=== PATIENT | male | born 1990 | race Caucasian/White ===

== ENCOUNTER 2017-04-19 19:08 | Emergency (ER) | payer BC ==
[~2017-04-19] VITALS: Ht 170.2 cm; Wt 81.6 kg
[2017-04-19] MEDS ORDERED: SERTRALINE (19:23)
[2017-04-19] MEDS ORDERED: XANAX (19:23)
[2017-04-19] MEDS ORDERED: FAMOTIDINE 20 MG TABLET PO ONE (19:30)
[2017-04-19] MEDS ORDERED: FAMOTIDINE. 20 MG/2 ML VIAL IV ONE ×2 (19:30→19:40)
[2017-04-19] MEDS ORDERED: predniSONE 20 MG TABLET PO ONE (19:30)
[2017-04-19] MEDS ORDERED: FAMOTIDINE 20 MG TABLET ONE (19:36)
[2017-04-19] MEDS ORDERED: predniSONE 20 MG TABLET ONE (19:36)
--- NOTE | 2017-04-19 20:36 | NUR ---
Patient discharged to home in stable conditon. Written and verbal after care instructions given. Patient verbalizes understanding of instructions. PATIENT LEFT WITH STABLE GAIT. PATIENT STATES WILL CALL AN UBER TO TAKE HIM HOME.
[2017-04-19 20:39] VITALS: BP 138/76
== END 2017-04-19 20:47 | disposition home or self-care (01) ==
LOC: ER 19:08
DX: T78.1XXA Other adverse food reactions, not elsewhere classified, initial encounter (principal); X58.XXXA Exposure to other specified factors, initial encounter
CPT/HCPCS: 96374; 99284; A4663; J3490; J7512